=== PATIENT | male | born 1990 | race American Indian/Alaskan Native ===

== ENCOUNTER 2020-09-25 13:57 | Emergency (ER) | payer MEDICAID ==
[2020-09-25] MEDS ORDERED: ASPIRIN 325 MG TAB PO ONE (14:09)
--- NOTE | 2020-09-25 14:44 | XRay Report ---
CHEST 2 VIEWS INDICATION / CLINICAL INFORMATION: chest pain. COMPARISON: None available. FINDINGS: SUPPORT DEVICES: None. HEART / MEDIASTINUM: No significant abnormality. LUNGS / PLEURA: No significant pulmonary or pleural abnormality. No pneumothorax. ADDITIONAL FINDINGS: No significant additional findings. IMPRESSION: 1. No acute findings. Signer Name: Miguelito Moe MD Signed: 09/25/2020 2:40 PM Workstation Name: [id number]
[2020-09-25] MEDS ORDERED: IBUPROFEN 800 MG TAB PO ONE (14:59)
[2020-09-25] MEDS ORDERED: fentaNYL 100 MCG/2 ML INJ IM ONE (14:59)
[2020-09-25] MEDS ORDERED: ONDANSETRON 4 MG/2 ML INJ IM ONE (14:59)
[2020-09-25 15:02] LABS: Alanine Aminotransferase 47 units/L (7-56); Albumin 4.2 g/dL (3.9-5); BUN/Creatinine Ratio 14; Blood Urea Nitrogen 17 mg/dL (9-20); Calcium 9.9 mg/dL (8.4-10.2); Hemolysis Index 23
--- NOTE | 2020-09-25 15:04 | Emergency Department Report ---
HPI - General Chief Complaint: Chest Pain Time Seen by Provider: 09/25/20 14:49 - HPI HPI: Room 22 The patient is a 29-year-old male present with a chief complaint of pain and swelling to bilateral lower extremities and left wrist. Patient states his s ymptoms began 3 days ago. Patient denies any recent trauma. Patient states she has noticed "fluid" in bilateral lower extremities that seems to "move around" his body. Patient states he had sharp intermittent chest pain 2 days ago but none currently. Patient complains of pain in bilateral lower extremities from the swelling and gives his pain a score of 9/10. ED Past Medical Hx - Past Medical History Previous Medical History?: Yes Additional medical history: Cerebral palsy, Born with intestine outside of body - Surgical History Past Surgical History?: Yes Additional Surgical History: abd surgery - Family History Family history: no significant - Social History Smoking Status: Current Some Day Smoker (Occasion) Substance Use Type: None (Denies illicit drug use), Alcohol (Occasional) - Medications Home Medications: Home Medications Medication Instructions Recorded Confirmed Last Taken Type Sulfamethoxazole/Trimethoprim 1 each PO BID #20 tablet 11/16/15 Unknown Rx [Bactrim DS TAB] traMADoL [Ultram 50 MG tab] 50 mg PO Q6HR PRN #16 tablet 11/16/15 Unknown Rx HYDROcodone/APAP 5-325 [[place] 1 - 2 each PO Q6HR PRN #10 tablet 09/25/20 Unknown Rx 5/325] Ibuprofen [Motrin 800 MG tab] 800 mg PO Q8HR PRN #20 tablet 09/25/20 Unknown Rx ED Review of Systems ROS: Stated complaint: SHARP CHEST PAINS AND BODY PAINS Other details as noted in HPI Constitutional: no symptoms reported Eyes: denies: eye pain ENT: denies: throat pain Respiratory: no symptoms reported Cardiovascular: chest pain Endocrine: no symptoms reported Gastrointestinal: denies: abdominal pain Genitourinary: denies: dysuria Musculoskeletal: denies: back pain Neurological: denies: headache Physical Exam - Physical Exam Vital Signs: Vital Signs 09/25/20 14:20 Temperature 99 F Pulse Rate 95 H Respiratory 22 Rate Blood Pressure 149/100 [Right] O2 Sat by Pulse 100 Oximetry Vital Signs 09/25/20 09/25/20 09/25/20 14:20 14:41 14:46 Temperature 99 F Pulse Rate 95 H 98 H 88 Respiratory 22 19 24 Rate Blood Pressure 155/100 Blood Pressure 149/100 [Right] O2 Sat by Pulse 100 100 99 Oximetry 09/25/20 09/25/20 09/25/20 15:00 15:16 16:30 Temperature Pulse Rate 90 88 92 H Respiratory 14 14 17 Rate Blood Pressure 152/97 155/100 134/92 Blood Pressure [Right] O2 Sat by Pulse 97 97 96 Oximetry Physical Exam: GENERAL: The patient is well-developed well-nourished male lying on stretcher not appearing to be in acute distress. [] HEENT: Normocephalic. Atraumatic. Extraocular motions are intact. Patient has moist mucous membranes. NECK: Supple. Trachea midline CHEST/LUNGS: Clear to auscultation. There is no respiratory distress noted. HEART/CARDIOVASCULAR: Regular. There is no tachycardia. There is no gallop rub or murmur. ABDOMEN: Abdomen is soft, nontender. Patient has normal bowel sounds. There is no abdominal distention. SKIN: There is no rash. There is trace bilateral lower extremity edema with tenderness to palpation. There is no diaphoresis. NEURO: The patient is awake, alert, and oriented. The patient is cooperative. The patient has no focal neurologic deficits. The patient has normal speech MUSCULOSKELETAL: There is no evidence of acute injury. ED Course Vital Signs 09/25/20 14:20 Temperature 99 F Pulse Rate 95 H Respiratory 22 Rate Blood Pressure 149/100 [Right] O2 Sat by Pulse 100 Oximetry ED Medical Decision Making - Lab Data Result diagrams: 09/25/20 14:22 09/25/20 14:22 Laboratory Tests 09/25/20 09/25/20 09/25/20 14:22 14:22 14:27 WBC 9.5 RBC 4.96 Hgb 15.3 H Hct 42.9 MCV 87 MCH 31 MCHC 36 H RDW 13.4 Plt Count 236 Lymph % (Auto) 16.8 [place] % (Auto) 9.7 H Eos % (Auto) 2.0 Baso % (Auto) 0.8 Lymph # (Auto) 1.6 [place] # (Auto) 0.9 H Eos # (Auto) 0.2 Baso # (Auto) 0.1 Seg Neutrophils % 70.7 H Seg Neutrophils # 6.7 Sodium 135 L Potassium 3.4 L Chloride 97.7 L Carbon Dioxide 27 Anion Gap 14 BUN 17 Creatinine 1.2 Estimated GFR > 60 BUN/Creatinine Ratio 14 Glucose 103 H Calcium 9.9 Total Bilirubin 0.30 AST 36 ALT 47 Alkaline Phosphatase 89 Troponin T < 0.010 NT-Pro-B Natriuret Pep < 5 Total Protein 7.6 Albumin 4.2 Albumin/Globulin Ratio 1.2 09/25/20 16:53 WBC RBC Hgb Hct MCV MCH MCHC RDW Plt Count Lymph % (Auto) [place] % (Auto) Eos % (Auto) Baso % (Auto) Lymph # (Auto) [place] # (Auto) Eos # (Auto) Baso # (Auto) Seg Neutrophils % Seg Neutrophils # Sodium Potassium Chloride Carbon Dioxide Anion Gap BUN Creatinine Estimated GFR BUN/Creatinine Ratio Glucose Calcium Total Bilirubin AST ALT Alkaline Phosphatase Troponin T < 0.010 NT-Pro-B Natriuret Pep Total Protein Albumin Albumin/Globulin Ratio - EKG Data -: EKG Interpreted by Me EKG shows normal: sinus rhythm Rate: tachycardia (101 bpm) - EKG Data When compared to previous EKG there are: previous EKG unavailable Interpretation: other (No ischemic changes seen) - Radiology Data Radiology results: report reviewed (Chest x-ray, bilateral lower extremity Doppler), image reviewed (Chest x-ray, bilateral lower extremity Doppler) interpreted by me: Chest x-ray-no focal infiltrates, no pneumothorax. [place] [address] XRay Report Signed Patient: JEFFRY MATA MR#: [id number] : 1990 Acct:[id number] Age/Sex: 29 / M ADM Date: 09/25/20 Loc: ED Attending Dr: Ordering Physician: ED MD SHIV Date of Service: 09/25/20 Procedure(s): XR chest routine 2V Accession Number(s): [id number] cc: ED MD SHIV Fluoro Time In Minutes: CHEST 2 VIEWS INDICATION / CLINICAL INFORMATION: chest pain. COMPARISON: None available. FINDINGS: SUPPORT DEVICES: None. HEART / MEDIASTINUM: No significant abnormality. LUNGS / PLEURA: No significant pulmonary or pleural abnormality. No pneumothorax. ADDITIONAL FINDINGS: No significant additional findings. IMPRESSION: 1. No acute findings. Signer Name: Miguelito Moe MD Signed: 09/25/2020 2:40 PM Workstation Name: [id number] Transcribed By: JACKIE Dictated By: Miguelito Moe MD Electronically Authenticated By: Miguelito Moe MD Signed Date/Time: 09/25/20 1440 DD/ 1439 TD/TT: Print Cancel [facility] [address] [place] [address] Vascular Lab Report Signed Patient: JEFFRY MATA MR#: [id number] : 1990 Acct:[id number] Age/Sex: 29 / M ADM Date: 09/25/20 Loc: ED Attending Dr: Ordering Physician: ELLIOTT ALBERT MD Date of Service: 09/25/20 Procedure(s): VL venous duplex LE BILAT Accession Number(s): [id number] cc: ELLIOTT ALBERT MD DUPLEX DOPPLER LOWER EXTREMITY VEINS, BILATERAL INDICATION / CLINICAL INFORMATION: Pain and swelling. TECHNIQUE: Duplex doppler imaging was performed through the veins of both lower extremities using venous compression and other maneuvers. COMPARISON: None available. FINDINGS: RIGHT COMMON FEMORAL VEIN: Negative. RIGHT FEMORAL VEIN: Negative. RIGHT POPLITEAL VEIN: Negative. RIGHT CALF VEINS: Negative. LEFT COMMON FEMORAL VEIN: Negative. LEFT FEMORAL VEIN: Negative. LEFT POPLITEAL VEIN: Negative. LEFT CALF VEINS: Negative. ADDITIONAL FINDINGS: None. IMPRESSION: 1. No sonographic evidence for DVT in either lower extremity. Signer Name: Miguelito Moe MD Signed: 09/25/2020 4:47 PM Workstation Name: [id number] Transcribed By: JACKIE Dictated By: Miguelito Moe MD Electronically Authenticated By: Miguelito Moe MD Signed Date/Time: 09/25/20 1647 DD/ 1646 TD/TT: Print Cancel - Differential Diagnosis CHF, hypoalbuminemia, renal insufficiency, DVTs, ACS, Critical care attestation.: If time is entered above; I have spent that time in minutes in the direct care of this critically ill patient, excluding procedure time. ED Disposition Clinical Impression: Leg pain, bilateral, Peripheral edema Disposition: DC-01 TO HOME OR SELFCARE Is pt being admited?: No Does the pt Need Aspirin: No Condition: Stable Additional Instructions: Return to the emergency department should you develop worsening symptoms, inability to tolerate food or liquids, high fever or any other concerns Prescriptions: Ibuprofen [Motrin 800 MG tab] 800 mg PO Q8HR PRN #20 tablet PRN Reason: Pain, Moderate (4-6) HYDROcodone/APAP 5-325 [[place] 5/325] 1 - 2 each PO Q6HR PRN #10 tablet PRN Reason: Pain Referrals: [facility] [Provider Group] - 3-5 Days Time of Disposition: 17:39
[2020-09-25 15:21] LABS: Basophils # (Auto) 0.1 K/mm3 (0.0-0.1); Basophils % (Auto) 0.8 % (0.0-1.8); Eosinophils # (Auto) 0.2 K/mm3 (0.0-0.4); Hematocrit 42.9 % (35.5-45.6); Hemoglobin 15.3 gm/dl (11.8-15.2); Lymphocytes # (Auto) 1.6 K/mm3 (1.2-5.4); Lymphocytes % (Auto) 16.8 % (13.4-35.0); Mean Corpuscular HGB Conc 36 % (32-34); Mean Corpuscular Volume 87 fl (84-94); Monocytes # (Auto) 0.9 K/mm3 (0.0-0.8); Monocytes % (Auto) 9.7 % (0.0-7.3); Platelet Count 236 K/mm3 (140-440); Red Blood Count 4.96 M/mm3 (3.65-5.03); Red Cell Distribution Width 13.4 % (13.2-15.2)
--- NOTE | 2020-09-25 16:51 | Vascular Lab Report ---
DUPLEX DOPPLER LOWER EXTREMITY VEINS, BILATERAL INDICATION / CLINICAL INFORMATION: Pain and swelling. TECHNIQUE: Duplex doppler imaging was performed through the veins of both lower extremities using venous stan casandra and other maneuvers. COMPARISON: None available. FINDINGS: RIGHT COMMON FEMORAL VEIN: Negative. RIGHT FEMORAL VEIN: Negative. RIGHT POPLITEAL VEIN: Negative. RIGHT CALF VEINS: Negative. LEFT COMMON FEMORAL VEIN: Negative. LEFT FEMORAL VEIN: Negative. LEFT POPLITEAL VEIN: Negative. LEFT CALF VEINS: Negative. ADDITIONAL FINDINGS: None. IMPRESSION: 1. No sonographic evidence for DVT in either lower extremity. Signer Name: Miguelito Moe MD Signed: 09/25/2020 4:47 PM Workstation Name: [id number]
[2020-09-25 16:59] VITALS: BP 134/92
--- NOTE | 2020-09-28 09:11 | Electrocardiograph Report ---
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
== END 2020-09-25 18:55 | disposition home or self-care (01) ==
LOC: ED 13:57
DX: R60.0 Localized edema (principal); M79.604 Pain in right leg; M79.605 Pain in left leg; F17.200 Nicotine dependence, unspecified, uncomplicated; Z98.890 Other specified postprocedural states; Z79.899 Other long term (current) drug therapy; Z79.1 Long term (current) use of non-steroidal anti-inflammatories (NSAID)
CPT/HCPCS: 36415; 71046; 80053; 83880; 84484; 85025; 93005; 93970; 96372; 99284; J2405; J3010